=== PATIENT | female | born 1975 | race Caucasian/White ===

== ENCOUNTER → 2016-08-19 | Outpatient (CLI) | payer OTHER ==
[~2016-08-19] MED LIST: VENL150T PO; ZOLP-413 PO; synthroid PO
[2016-08-19 16:18] LABS: HEMOGLOBIN 15.2 g/dL (11.7-16.4)
[2016-08-19 16:32] LABS: ASPARTATE AMINO TRANSFERASE 11 U/L (15-37); BLOOD UREA NITROGEN 8 mg/dL (7-18)
== END | disposition home or self-care (01) ==
LOC: STAR 15:11
PROVIDERS: ATTEND Obstetrics & Gynecology
DX: Z01.818 Encounter for other preprocedural examination (principal); N80.9 Endometriosis, unspecified
CPT/HCPCS: 36415; 80053; 81003; 84703; 85025; 87086

== ENCOUNTER 2016-08-30 05:44 | Day surgery (SDC) | payer OTHER ==
[2016-08-19 15:35] VITALS: BP 130/85
[~2016-08-30] VITALS: Ht 167.6 cm; Wt 90.0 kg
[2016-08-30] MEDS ORDERED: LACTATED RINGERS 1,000 ML IV SCH (06:13)
[2016-08-30 06:55] LABS: HCG UR OBC PASS
[2016-08-30] MEDS ORDERED: FLUORESCEIN SODIUM 500 MG/5 ML ONE (06:57)
[2016-08-30] MEDS ORDERED: BUPIVACAINE/PF-EPI 0.25% 1:200K ONE (06:57)
[2016-08-30] MEDS ORDERED: BUPIVACAINE/PF 0.25% ONE (06:57)
[2016-08-30] MEDS ORDERED: KETAMINE 10 MG/ML, 20ML ONE (07:25)
[2016-08-30] MEDS ORDERED: FENTANYL PF 250 MCG/5ML ONE (07:25)
[2016-08-30] MEDS ORDERED: METOCLOPRAMIDE 5 MG/ML, 2ML ONE (07:29)
[2016-08-30] MEDS ORDERED: PROPOFOL 10 MG/ML, 20ML ONE (07:29)
[2016-08-30] MEDS ORDERED: LABETALOL 5MG/ML ONE (07:29)
[2016-08-30] MEDS ORDERED: ONDANSETRON 2MG/ML, 2ML ONE (07:29)
[2016-08-30] MEDS ORDERED: ROCURONIUM 10 MG/ML ONE (07:29)
[2016-08-30] MEDS ORDERED: DEXAMETHASONE 4 MG/ML, 1ML ONE (07:29)
[2016-08-30] MEDS ORDERED: CEFAZOLIN 1,000 MG ONE (07:29)
[2016-08-30] MEDS ORDERED: MIDAZOLAM 1 MG/ML, 2ML IV PRN (08:30)
[2016-08-30] MEDS ORDERED: LABETALOL 5MG/ML, 20ML IV PRN (08:30)
[2016-08-30] MEDS ORDERED: PROMETHAZINE 25 MG/ML, 1ML IV PRN (08:30)
[2016-08-30] MEDS ORDERED: OXYcodone 5 MG/5 ML ORAL.SOL UDC PO PRN (08:30)
[2016-08-30] MEDS ORDERED: hydrALAzine 20 MG/ML, 1ML IV PRN (08:30)
[2016-08-30] MEDS ORDERED: ONDANSETRON 2MG/ML, 2ML IVPush PRN (08:30)
[2016-08-30] MEDS ORDERED: MEPERIDINE/PF 25MG/0.5ML IVPush PRN (08:30)
[2016-08-30] MEDS ORDERED: HYDROmorphone 1 MG/ML, 1ML IV PRN (08:30)
[2016-08-30] MEDS ORDERED: FENTANYL PF 100 MCG/2ML ONE (10:21)
[2016-08-30] MEDS ORDERED: OXYcodone 5 MG/5 ML ORAL.SOL UDC ONE (10:22)
[2016-08-30] MEDS ORDERED: KETOROLAC 30 MG/1 ML ONE (10:26)
[2016-08-30] MEDS ORDERED: KETOROLAC 30 MG/1 ML IV ONE (10:30)
[2016-08-30] MEDS: FENTANYL PF 100 MCG/2ML IV PRN ×2 (10:30→11:00)
[2016-08-30] MEDS ORDERED: ACETAMINOPHEN 650 MG/20.3 ML UDC ONE (10:39)
[2016-08-30] MEDS ORDERED: ACETAMINOPHEN 650 MG/20.3 ML UDC PO ONE (10:45)
[2016-08-30] MEDS ORDERED: MEPERIDINE/PF 25MG/0.5ML ONE (11:30)
[2016-08-30] MEDS ORDERED: OXYcodone/APAP 5/325MG TABLET ONE (15:16)
[2016-08-30] MEDS ORDERED: OXYcodone/APAP 5/325MG TABLET PO ONE (15:30)
== END 2016-08-30 15:40 | disposition home or self-care (01) ==
LOC: OUT 05:44
PROVIDERS: ATTEND Obstetrics & Gynecology
DX: N80.0 Endometriosis of uterus (principal); N72 Inflammatory disease of cervix uteri; N83.02 Follicular cyst of left ovary; N83.01 Follicular cyst of right ovary; N83.8 Other noninflammatory disorders of ovary, fallopian tube and broad ligament; N80.2 Endometriosis of fallopian tube; N94.89 Other specified conditions associated with female genital organs and menstrual cycle; E66.9 Obesity, unspecified; Z68.32 Body mass index [BMI] 32.0-32.9, adult; Z90.49 Acquired absence of other specified parts of digestive tract; E89.0 Postprocedural hypothyroidism; Z80.49 Family history of malignant neoplasm of other genital organs
CPT/HCPCS: 36415; 58552; 81025; 86850; 86900; 88307; J0690; J1100; J1885; J2175; J2405; J2704; J2765; J3010; J3490; J7120

== ENCOUNTER 2017-08-04 02:07 | Emergency (ER) | payer OTHER ==
[~2017-08-04] VITALS: Ht 170.2 cm; Wt 87.2 kg
[2017-08-04 03:36] VITALS: BP 126/82
[2017-08-04] MEDS ORDERED: DEXAMETHASONE 4 MG TABLET ONE (04:30)
[2017-08-04] MEDS ORDERED: DEXAMETHASONE 4 MG TABLET PO ONE (04:30)
== END 2017-08-04 05:06 | disposition home or self-care (01) ==
LOC: ED 03:10
DX: J02.8 Acute pharyngitis due to other specified organisms (principal); R05 Cough; Z90.710 Acquired absence of both cervix and uterus
CPT/HCPCS: 71046; 87081; 87880; 93005; 99285

== ENCOUNTER → 2017-11-03 | Outpatient (CLI) | payer OTHER ==
[~2017-11-03] MED LIST changes: +CLAR500T PO; +LEVO112T2 PO; +PRED10TA PO; +ZOLP10TA PO
== END ==
LOC: STAR 16:03
PROVIDERS: ATTEND Otolaryngology
DX: Z02.9 Encounter for administrative examinations, unspecified (principal)

== ENCOUNTER 2017-11-09 05:25 | Day surgery (SDC) | payer OTHER ==
[~2017-11-09] VITALS: Ht 167.6 cm; Wt 88.0 kg
[2017-11-09] MEDS ORDERED: LACTATED RINGERS 1,000 ML IV SCH (06:02)
[2017-11-09 06:03] VITALS: BP 129/85
[2017-11-09] MEDS ORDERED: LIDOCAINE-MPF 1%, 2ML INFIL ONE (06:30)
[2017-11-09] MEDS ORDERED: CIPROFLOXACIN/HYDROCORTISONE EAR SUSP 0.2-1%, 10ML ONE (06:51)
[2017-11-09] MEDS ORDERED: OFLOXACIN OPHTH 0.3%, 5ML ONE (06:51)
[2017-11-09] MEDS ORDERED: MIDAZOLAM 1 MG/ML, 2ML ONE (07:01)
[2017-11-09] MEDS ORDERED: SCOPOLAMINE PATCH, 1.5MG PATCH.TD72 TD ONE (07:14)
[2017-11-09] MEDS ORDERED: ONDANSETRON 2MG/ML, 2ML ONE (07:16)
[2017-11-09] MEDS: SCOPOLAMINE PATCH, 1.5MG PATCH.TD72 TD ONE (07:16)
[2017-11-09] MEDS ORDERED: DEXAMETHASONE 4 MG/ML, 1ML ONE (07:16)
[2017-11-09] MEDS ORDERED: PROPOFOL 10 MG/ML, 20ML ONE (07:16)
[2017-11-09] MEDS ORDERED: SUCCINYLCHOLINE 20 MG/ML, 10ML ONE (07:16)
[2017-11-09] MEDS ORDERED: KETOROLAC 30 MG/1 ML ONE (07:56)
[2017-11-09] MEDS ORDERED: OXYcodone 5 MG/5 ML ORAL.SOL UDC ONE (07:56)
[2017-11-09] MEDS ORDERED: OXYcodone 5 MG/5 ML ORAL.SOL UDC PO PRN (08:00)
[2017-11-09] MEDS ORDERED: MEPERIDINE/PF 25MG/0.5ML IVPush PRN (08:00)
[2017-11-09] MEDS ORDERED: hydrALAzine 20 MG/ML, 1ML IV PRN (08:00)
[2017-11-09] MEDS ORDERED: PROMETHAZINE 25 MG/ML, 1ML IV PRN (08:00)
[2017-11-09] MEDS ORDERED: LABETALOL 5MG/ML, 20ML IV PRN (08:00)
[2017-11-09] MEDS ORDERED: HYDROmorphone 1 MG/ML, 1ML IV PRN (08:00)
[2017-11-09] MEDS ORDERED: KETOROLAC 30 MG/1 ML IV PRN (08:00)
[2017-11-09] MEDS ORDERED: ALBUTEROL SULFATE 2.5 MG/3 ML NPPB PRN (08:00)
[2017-11-09] MEDS ORDERED: METOCLOPRAMIDE 5 MG/ML, 2ML IV PRN (08:00)
[2017-11-09] MEDS ORDERED: ONDANSETRON 2MG/ML, 2ML IVPush PRN (08:00)
[2017-11-09] MEDS ORDERED: FENTANYL PF 100 MCG/2ML IV PRN (08:00)
[2017-11-09] MEDS ORDERED: HYDROmorphone 2 MG/ML, 1ML IV PRN (08:00)
== END 2017-11-09 09:20 | disposition home or self-care (01) ==
LOC: OUT 05:25
PROVIDERS: ATTEND Otolaryngology
DX: H69.82 Other specified disorders of Eustachian tube, left ear (principal); F41.9 Anxiety disorder, unspecified
CPT/HCPCS: 69436; J0330; J1100; J1885; J2250; J2405; J2704; J7120

== ENCOUNTER 2019-03-14 15:10 | Outpatient (CLI) | payer OTHER ==
[~2019-03-14 15:10] MED LIST changes: +CLAR-36 PO; -CLAR500T PO
== END 2019-03-14 23:59 | disposition home or self-care (01) ==
LOC: CFH 15:10
PROVIDERS: ATTEND Nurse Practitioner Family
DX: E03.9 Hypothyroidism, unspecified (principal); F32.9 Major depressive disorder, single episode, unspecified; G44.52 New daily persistent headache (NDPH); R03.0 Elevated blood-pressure reading, without diagnosis of hypertension
CPT/HCPCS: 70450

== ENCOUNTER 2019-03-26 12:35 | Emergency (ER) | payer OTHER ==
[~2019-03-26] VITALS: Ht 170.2 cm; Wt 92.6 kg
[2019-03-26] MEDS ORDERED: ASPIRIN 81 MG TABLET CHEW PO ONE (13:30)
[2019-03-26] MEDS ORDERED: KETOROLAC 30 MG/1 ML IVPush ONE (13:30)
[2019-03-26] MEDS ORDERED: SODIUM CHLORIDE FLUSH 10ML SYR IVF ONE (13:30)
[2019-03-26] MEDS ORDERED: LORazepam 2 MG/ML, 1ML IVPush ONE (13:30)
[2019-03-26 13:39] LABS: BASOPHILS # (AUTO) 0.03 x10^3/uL (0-0.1); BASOPHILS % (AUTO) 0 % (0-1); EOSINOPHILS % (AUTO) 0 % (1-7); LYMPHOCYTES % (AUTO) 32 % (22-44); MD NO; MEAN CORPUSCULAR HEMOGLOBIN 29.7 pg (27.0-34.8); MEAN CORPUSCULAR HGB CONC 32.7 g/dL (32.4-35.8); MEAN CORPUSCULAR VOLUME 90.8 fL (80-100); MEAN PLATELET VOLUME 8.5 fL (7.4-10.4); MONOCYTES # (AUTO) 0.45 x10^3/uL (0.2-0.8); MONOCYTES % (AUTO) 6 % (2-9); NEUTROPHILS # (AUTO) 5.04 x10^3/uL (1.8-6.8); NEUTROPHILS % (AUTO) 62 % (42-75); PLATELET COUNT 360 x10^3/uL (130-400); RED BLOOD COUNT 4.57 x10^6/uL (3.82-5.3); RED CELL DISTRIBUTION WIDTH 12.9 % (9.6-15.2)
[2019-03-26] MEDS ORDERED: KETOROLAC 30 MG/1 ML ONE (13:47)
[2019-03-26] MEDS ORDERED: LORazepam 2 MG/ML, 1ML ONE (13:47)
[2019-03-26] MEDS ORDERED: ASPIRIN 81 MG TABLET CHEW ONE (13:47)
[2019-03-26 13:52] LABS: ALANINE AMINOTRANSFERASE 27 U/L (12-78); ALBUMIN 3.2 g/dL (3.4-5.0); ANION GAP 4 mmol/L (5-15); CALCIUM 8.4 mg/dL (8.5-10.1); CHLORIDE 107 mmol/L (98-107); CREATININE 1.09 mg/dL (0.55-1.02)
--- NOTE | 2019-03-26 13:54 | NUR ---
medicated per emar
[2019-03-26 13:56] LABS: ALKALINE PHOSPHATASE 99 U/L (45-117); BILIRUBIN,TOTAL 0.1 mg/dL (0.2-1.0); TOTAL PROTEIN 7.4 g/dL (6.4-8.2); TROPONIN I < 0.015 ng/mL (0.000-0.045)
[2019-03-26] MEDS ORDERED: NITROGLYCERIN OINT 2%, 1GM TP ONE ×2 (15:13→15:30)
--- NOTE | 2019-03-26 15:33 | NUR ---
With reassessment patient reports pain improved from 10 to 7/10 Provider at bedside to trail nitro paste then decide dispo
--- NOTE | 2019-03-26 15:50 | NUR ---
NITRO INEFFECTIVE (PAIN REMAINS 7-8) pROVIDER MADE AWARE
--- NOTE | 2019-03-26 16:00 | NUR ---
ATTTEMPTED TO LOCATE D/C PAPERWORK-COULD NO FIND PROVIDER MADE AWARE
[2019-03-26 16:02] VITALS: BP 143/73
--- NOTE | 2019-03-26 16:36 | NUR ---
DISCHARGED HOME IN THE COMPANY OF HER DAUGHTER AFTER REVIEW OF POC (F/U WITH PCP FOR CONTINUED WORKUP
== END 2019-03-26 16:38 | disposition home or self-care (01) ==
LOC: ED 16:33
DX: R07.2 Precordial pain (principal)
CPT/HCPCS: 36415; 71045; 80053; 84484; 85025; 93005; 96374; 96375; 99284; J1885; J2060

== ENCOUNTER 2019-12-29 12:29 | Outpatient (CLI) | payer OTHER ==
[~2019-12-29 12:29] MED LIST changes: +CLAR-14 PO; -CLAR-36 PO
== END 2019-12-29 23:59 | disposition home or self-care (01) ==
LOC: CARD 12:29
PROVIDERS: ATTEND Nurse Practitioner Family
DX: R40.4 Transient alteration of awareness (principal)
CPT/HCPCS: 95819

== ENCOUNTER 2020-09-15 18:28 | Emergency (ER) | payer OTHER ==
[~2020-09-15] VITALS: Ht 170.2 cm; Wt 91.3 kg
[~2020-09-15 18:28] MED LIST changes: +OMNIPAQUE 350 MG/ML, 100ML BOTTLE ONE
--- NOTE | 2020-09-15 18:50 | NUR ---
This RN put pt on all monitors. NADN. MD Rodas to bedside at this time. preston Zhang RN at bedside for report.
[2020-09-15 19:10] LABS: BASOPHILS % (AUTO) 0 % (0-1); EOSINOPHILS % (AUTO) 0 % (1-7); LYMPHOCYTES % (AUTO) 27 % (22-44); MEAN CORPUSCULAR HEMOGLOBIN 30.3 pg (27.0-34.8); MEAN CORPUSCULAR HGB CONC 33.6 g/dL (32.4-35.8); MEAN PLATELET VOLUME 8.8 fL (7.4-10.4); MONOCYTES % (AUTO) 6 % (2-9); NEUTROPHILS % (AUTO) 66 % (42-75); PLATELET COUNT 336 x10^3/uL (130-400); RED BLOOD COUNT 4.43 x10^6/uL (3.82-5.3); RED CELL DISTRIBUTION WIDTH 13.2 % (9.6-15.2)
[2020-09-15 19:11] LABS: MD NO
[2020-09-15 19:20] LABS: ALBUMIN 3.4 g/dL (3.4-5.0); ANION GAP 7 mmol/L (5-15); CALCIUM 8.5 mg/dL (8.5-10.1); CHLORIDE 108 mmol/L (98-107); CREATININE 1.09 mg/dL (0.55-1.02)
[2020-09-15 19:24] LABS: TROPONIN I < 0.015 ng/mL (0.000-0.045)
--- NOTE | 2020-09-15 19:44 | NUR ---
piv placed and pt taken to ct
[2020-09-15 19:49] VITALS: BP 143/77
[2020-09-15] MEDS ORDERED: SODIUM CHLORIDE FLUSH 10ML SYR IVF ONE (20:00)
== END 2020-09-15 20:36 | disposition home or self-care (01) ==
LOC: ED 19:56
DX: J06.9 Acute upper respiratory infection, unspecified (principal); R07.89 Other chest pain; M79.10 Myalgia, unspecified site; R53.83 Other fatigue; Z90.710 Acquired absence of both cervix and uterus; Z86.39 Personal history of other endocrine, nutritional and metabolic disease
CPT/HCPCS: 36415; 71045; 71275; 80048; 82040; 84484; 85025; 85379; 93005; 99285; Q9967